=== PATIENT | female | born 1965 | race Caucasian/White ===

== ENCOUNTER 2019-05-13 14:47 | Emergency (ER) | payer BC ==
--- OUTSIDE RECORDS SUMMARY | 2019-05-13 15:04 | XMS REPORT | Continuity of Care Document ---
:1965 External Reference #:[id number] Author Name Traci Cruz, MS, OPHTHALMIC SURGICAL ASSISTANT-C, CNM (transmitted by agent of provider Sammi Alejandra) Address [address] [place] [address] Care Team Providers Name Role Phone Sammi Alejandra MD - Internal Medicine Care Team Information Individual Pension Consultant Problems Active Problems Provider Date Benign tumor of breast Cachorro Hodge MD Onset: 03/27/2013 Heartburn Benedict Mlilard MD Onset: 12/02/2016 Gastro-esophageal reflux disease with Benedict Millard MD Onset: 02/15/2017 esophagitis Gastroduodenitis Benedict Millard MD Onset: 02/15/2017 Benign neoplasm of stomach Benedict Millard MD Onset: 02/15/2017 Screening for malignant neoplasm of colon Benedict Millard MD Onset: 12/27/2017 Hyperlipidemia Sammi Alejandra MD Onset: 07/31/2018 Gastro-esophageal reflux disease with Sammi Alejandra MD Onset: 07/31/2018 esophagitis Migraine without aura, not refractory Sammi Alejandra MD Onset: 07/31/2018 Trigeminal neuralgia Sammi Alejandra MD Onset: 07/31/2018 Social History Type Date Description Comments Sex Unknown Tobacco Use Start: Unknown current cigarette smoker ETOH Use Rarely consumes alcohol Tobacco Use Start: Unknown Patient is a current smoker, smokes every day Recreational Drug Use Denies Drug Use Tobacco Use Start: Unknown Light tobacco smoker (10 or fewer cigarettes/day) Smoking Status Reviewed: 03/29/19 Light tobacco smoker (10 or fewer cigarettes/day) Allergies, Adverse Reactions, Alerts Description No Known Drug Allergies Medications Active Medications SIG Qnty Indications Ordering Provider Date Wrist Brace/Suede use on left hand 1units E78.5 Ny, Sammi, MD 2018 Finish/Left/Medium during the night Misc [id number] Ethyl Take 2 in am 60caps E78.5 Sammi Alejandra MD 12/26/2018 Esters 1gm Capsules Nystop apply under 60gm B37.9 Sammi Alejandra MD 12/26/2018 [id number]/GM breasts twice a Powder day Vitamin D take one capsule 12caps Sammi Alejandra MD 11/06/2018 (Ergocalciferol) once a week [id number] Capsules Singulair 1 by mouth every 30tabs Sammi Alejandra MD 10mg Tablets day as needed Atorvastatin Calcium 1 by mouth daily 30tabs Sammi Alejandra MD 10mg Tablets Famotidine 1 by mouth every 30tabs Sammi Alejandra MD 20mg Tablets day History Medications Cephalexin 1 by mouth 30tabs L03.032 Sammi Alejandra, 12/26/2018 - 500mg Tablets three times a MD 03/29/2019 day Ergocalciferol take one a week 16caps E55.9 Sammi Alejandra, 12/26/2018 - 56689Isre 03/29/2019 Capsules Benzonatate take one 30caps R05 Sammi Alejandra, 10/23/2018 - 200mg capsule every 8 MD 12/26/2018 Capsules hours as needed Mucus Relief ER Take one every 60tabs R05 Sammi Alejandra, 10/23/2018 - 600mg 12 hours if 12/26/2018 Tablets ER 12HR needed Immunizations CPT Code Status Date Vaccine Lot # [id number] Given 11/11/2016 Pneumovax Injection 33799 Given 11/11/2016 Tdap injection 38848 Given 06/13/2013 flu vaccination Vital Signs Date Vital Result Comment 03/29/2019 1:54pm BP Systolic Sitting Left Arm 110 mmHg BP Diastolic Sitting Left Arm 72 mmHg Body Temperature 97.8 F Heart Rate 85 /min Respiratory Rate 18 /min Height 65 inches 5'5" Weight 170.00 lb BMI (Body Mass Index) 28.3 kg/m2 BSA (Body Surface Area) 1.85 m2 [place] body weight in kilograms 57 kg O2 % BldC Oximetry 97 % ra 01/08/2019 1:08pm BP Systolic Sitting Right Arm 114 mmHg BP Diastolic Sitting Right Arm 80 mmHg Body Temperature 9.2 F Heart Rate 84 /min Respiratory Rate 18 /min Height 65 inches 5'5" Weight 168.00 lb BMI (Body Mass Index) 28.0 kg/m2 BSA (Body Surface Area) 1.84 m2 [place] body weight in kilograms 57 kg O2 % BldC Oximetry 98 % Ra Results Test Date Facility Test Result H/L Range Note LDL Cholesterol 03/28/2019 [facility] Cholesterol 264 mg/dL High <200 1, [address] [place], [place] [id number] [phone] Triglycerides 319 mg/dL High <150 3 HDL Cholesterol 37 mg/dL Low >40 4 LDL-Cholesterol 163 mg/dL < 100 5 Laboratory 03/28/2019 [facility] Vitamin 28.3 Low 30.0-100.0 6 test finding [address] D,25-Hydroxy ng/[place] [address] [phone] CBC 03/28/2019 [facility] White Blood 7.0 K/uL Normal 3.1-10.7 W/Automated [address] [place] [address] [phone] Red Blood Count 4.45 M/uL Normal 3.90-5.40 Hemoglobin 14.4 gm/dL Normal 11.6-15.8 Hematocrit 42.0 % Normal 36.0-46.1 Mean Cell Volume 94.4 fl Normal 80.9-99.0 Mean Corpuscular HGB 32.4 pg Normal 25.9-32.7 Mean Corpuscular HGB Conc 34.3 g/dL Normal 30.8-34.3 Platelet Count 192 K/uL Normal 155-360 Red Cell Distri Width SD 46.7 fl Normal 36-47 Red Cell Distri Width %CV 13.5 % Normal 11.7-14.4 Mean Platelet Volume 10.7 fl Normal 8.9-12.4 Neut% 34.9 % Low 40.4-72.8 Lymph % 54.9 % High 20.0-42.0 [place] % 6.5 % Normal 4.3-13.2 Eo% 2.7 % Normal 0.0-6.6 Bas% 0.6 % Normal 0.0-1.1 Immature Grans 0.4 % Normal 0.0-5.0 NRBC % 0.0 /100WBC < 10/ 100 WBC Neut# 2.43 K/uL Normal 1.8-7.0 Lymph # 3.83 K/uL Normal 1.0-4.0 [place] # 0.45 K/uL Normal 0.3-0.9 Eos # 0.19 K/uL Normal 0.0-0.5 Baso # 0.04 K/uL Normal 0.0-0.1 Immature Grans Absolute 0.03 K/uL NRBC # 0.00 K/uL Comprehensive 03/28/2019 [facility] Glucose 96 mg/dL Normal 74-106 Metabolic Panel [address] [place] [address] [phone] BUN 14 mg/dL Normal 7-18 Creatinine 0.8 mg/dL Normal 0.6-1.3 Glom Filtration Rate, Estimate >60 mL/min >60 If >60 mL/min >60 7 BUN/Creat 17.5 ratio Sodium 139 mmol/L Normal 136-145 Potassium 4.2 mmol/L Normal 3.5-5.1 Chloride 107 mmol/L Normal 98-107 Carbon Dioxide 24 mmol/L Normal 21-32 Anion Gap 8 mEq/L Normal 8-16 Calcium 9.2 mg/dL Normal 8.5-10.1 Total Protein 7.1 g/dL Normal 6.4-8.2 Albumin 3.5 g/dL Normal 3.4-5.0 Globulin 3.6 g/dL Normal 1.9-4.3 Alb/Glob 1.0 ratio Bilirubin,Total 0.3 mg/dL Normal 0.2-1.0 Sgot/Ast 13 U/L Low 15-37 8 SGPT/Alt 27 U/L Normal 12-78 Alkaline Phosphatase 122 U/L High 45-117 HPV High Risk - 12/26/2018 [facility] HPV High Results on Alt Ref Lab [address] [facility] [place] [address] [phone] Urine Dipstick 12/26/2018 [facility] Ua Color yellow Yellow Ua Clarity clear Clear Ua Leuko negative Negative Ua Nitrite negative Negative Ua Urobilinogen negative Low 0.2 - 1.0 E.U./dL Ua Protein negative Negative Ua PH 5.0 Low 6.5-7.5 Ua Blood negative Negative Ua Specific [place] 1.025 1.010-1.030 Ua Ketones negative Negative Ua Bilirubin negative Negative Ua Glucose negative Negative Laboratory test 10/23/2018 [facility] Vitamin 25.5 Low 30.0-100.0 11, finding [address] D,25-Hydroxy ng/mL 12 [place], [place] [id number] [phone] Glycohemoglobin 10/23/2018 [facility] Glycohemoglobin 5.6 % Normal 4.2-6.[address] (A1c) [place], [place] [id number] [phone] eAG 114 mg/dL CBC W/Automated 10/23/2018 [facility] White Blood 7.1 K/uL Normal 3.1-10.[address] Count [place], [place] [address] [phone] Red Blood Count 4.51 M/uL Normal 3.90-5.40 Hemoglobin 14.5 gm/dL Normal 11.6-15.8 Hematocrit 43.2 % Normal 36.0-46.1 Mean Cell Volume 95.8 fl Normal 80.9-99.0 Mean Corpuscular HGB 32.2 pg Normal 25.9-32.7 Mean Corpuscular HGB Conc 33.6 g/dL Normal 30.8-34.3 Platelet Count 189 K/uL Normal 155-360 Red Cell Distri Width SD 48.0 fl High 36-47 Red Cell Distri Width %CV 14.0 % Normal 11.7-14.4 Mean Platelet Volume 11.6 fL Normal 8.9-12.4 Neut% 43.6 % Normal 40.4-72.8 Lymph % 46.4 % High 20.0-42.0 [place] % 7.3 % Normal 4.3-13.2 Eo% 2.4 % Normal 0.0-6.6 Bas% 0.3 % Normal 0.0-1.1 Neut# 3.10 K/uL Normal 1.8-7.0 Lymph # 3.30 K/uL Normal 1.0-4.0 [place] # 0.52 K/uL Normal 0.3-0.9 Eos # 0.17 K/uL Normal 0.0-0.5 Baso # 0.02 K/uL Normal 0.0-0.1 Laboratory test 10/23/2018 [facility] Thyroid 2.11 Normal 0.30-4.20 finding [address] Stim uIU/[place] [address] Hormone [phone] Free T4 1.01 ng/dL Normal 0.76-1.46 Magnesium 2.4 mg/dL Normal 1.8-2.4 Iron-Tibc-%Sat 10/23/2018 [facility] Serum Iron 133 g/dL Normal 50-170 [address] [place] [address] [phone] Total Iron Binding Capacity 347 g/dL Normal 250-450 Transferrin %Saturation 38 % Normal 12-57 Laboratory test 10/23/2018 [facility] Ferritin 145 ng/mL Normal 8-252 finding [address] [place] [address] [phone] Vitamin B12 731 pg/mL Normal 193-986 LDL Cholesterol 10/23/2018 [facility] Cholesterol 272 mg/dL High <200 14 Profile [address] [place] [address] [phone] Triglycerides 373 mg/dL High <150 15 HDL Cholesterol 42 mg/dL >40 16 LDL-Cholesterol 155 mg/dL < 100 17 Comprehensive 10/23/2018 [facility] Glucose 89 mg/dL Normal 74-106 Metabolic Panel [address] [place] [address] [phone] BUN 15 mg/dL Normal 7-18 Creatinine 0.7 mg/dL Normal 0.6-1.3 Glom Filtration Rate, Estimate >60 mL/min >60 If >60 mL/min >60 18 BUN/Creat 21.4 ratio Sodium 142 mmol/L Normal 136-145 Potassium 5.1 mmol/L Normal 3.5-5.1 Chloride 108 mmol/L High 98-107 Carbon Dioxide 30 mmol/L Normal 21-32 Anion Gap 4 mEq/L Low 8-16 Calcium 9.4 mg/dL Normal 8.5-10.1 Total Protein 7.0 g/dL Normal 6.4-8.2 Albumin 3.8 g/dL Normal 3.4-5.0 Globulin 3.2 g/dL Normal 1.9-4.3 Alb/Glob 1.2 ratio Bilirubin,Total 0.4 mg/dL Normal 0.2-1.0 Sgot/Ast 11 U/L Low 15-37 19 SGPT/Alt 26 U/L Normal 12-78 Alkaline Phosphatase 115 U/L Normal 45-117 1 E78.5 E55.9 2 Reference Guidelines*: Desirable: ........... < 200 mg/dL Borderline High: ..... 200-239 mg/dL High: ................ >= 240 mg/dL * The National Cholesterol Education Program (NCEP) 3 Reference Guidelines*: Normal: ............. < 150 mg/dL Borderline High: .... 150-199 mg/dL High: ............... 200-499 mg/dL Very High: .......... > 500 mg/dL * Source: National Cholesterol Education Program (NCEP) 4 Reference Guidelines*: Low HDL: ..... < 40 mg/dL Normal: ..... 40-60 mg/dL Desirable: ... > 60 mg/dL *The National Cholesterol Education Program(NCEP) 5 Reference Guidelines*: Optimal:........... <100 mg/dL Near Optimal....... 100-129 mg/dL Borderline High.... 130-159 mg/dL High............... 160-189 mg/dL Very High.......... >=190 mg/dL * Source: National Cholesterol Education Program (NCEP) 6 Vitamin D deficiency has been defined by the [place] of [employer] and an Endocrine Society practice guideline as a level of serum 25-OH vitamin D less than 20 ng/mL (1,2). The Endocrine Society went on to further define vitamin D insufficiency as a level between 21 and 29 ng/mL (2). 1. IOM ([place] of Medicine). 2010. Dietary reference intakes for calcium and D. [place]: The National Academies Press. 2. Frank MF, Briana NC, Florecita HERNANDEZ, et al. Evaluation, treatment, and prevention of vitamin D deficiency: an Endocrine Society clinical practice guideline. JCEM. 2010; 96(7):1911-30. Performed at: RN - [facility] [address] [id number] Methodologist: Edna Gallagher MD, Phone: [phone] Note: Persistent reduction for 3 months or more in an eGFR <60 mL/min/1.73 m2 defines CKD. Patients with eGFR values >/=60 mL/min/1.73 m2 may also have CKD if evidence of persistent proteinuria is present. The original MDRD equation for estimated GFR is not valid for patients less than 18 years of age. Additional information may be found at www.kdoqi.org. 8 Values below the stated reference ranges of AST and ALT can be seen in normal populations. Clinical correlation is suggested. 9 Z12.4 10 Hard copy of report to be sent by mail Report may be viewed in Clinical Review, or in PCI under Medical Record Forms 11 E78.5 G43.009 E55.9 Z86.32 R53.82 G25.81 12 Vitamin D deficiency has been defined by the [place] of [employer] and an Endocrine Society practice guideline as a level of serum 25-OH vitamin D less than 20 ng/mL (1,2). The Endocrine Society went on to further define vitamin D insufficiency as a level between 21 and 29 ng/mL (2). 1. IOM ([place] of Medicine). 2010. Dietary reference intakes for calcium and D. [place]: The National Academies Press. 2. Frank MF, Briana [place], Florecita HERNANDEZ, et al. Evaluation, treatment, and prevention of vitamin D deficiency: an Endocrine Society clinical practice guideline. JCEM. 2010; 96(7):1911-30. Performed at: RN - [facility] [address] [id number] Methodologist: Edna Gallagher MD, Phone: [phone] 13 Elevated levels of HbA1c suggest the need for more aggressive treatment of glycemia. The [place] Diabetes Association recommends that a primary goal of therapy should be a HbA1c of <7% and that physicians should re-evaluate the treatment regimen in patients with HbA1c values consistently >8%. 14 Reference Guidelines*: Desirable: ........... < 200 mg/dL Borderline High: ..... 200-239 mg/dL High: ................ >= 240 mg/dL * The National Cholesterol Education Program (NCEP) 15 Reference Guidelines*: Normal: ............. < 150 mg/dL Borderline High: .... 150-199 mg/dL High: ............... 200-499 mg/dL Very High: .......... > 500 mg/dL * Source: National Cholesterol Education Program (NCEP) 16 Reference Guidelines*: Low HDL: ..... < 40 mg/dL Normal: ..... 40-60 mg/dL Desirable: ... > 60 mg/dL *The National Cholesterol Education Program(NCEP) 17 Reference Guidelines*: Optimal:........... <100 mg/dL Near Optimal....... 100-129 mg/dL Borderline High.... 130-159 mg/dL High............... 160-189 mg/dL Very High.......... >=190 mg/dL * Source: National Cholesterol Education Program (NCEP) 18 Note: Persistent reduction for 3 months or more in an eGFR <60 mL/min/1.73 m2 defines CKD. Patients with eGFR values >/=60 mL/min/1.73 m2 may also have CKD if evidence of persistent proteinuria is present. The original MDRD equation for estimated GFR is not valid for patients less than 18 years of age. Additional information may be found at www.kdoqi.org. 19 Values below the stated reference ranges of AST and ALT can be seen in normal populations. Clinical correlation is suggested. Procedures Date Code Description Status 11/20/2018 [id number] Mammogram Completed 10/23/2018 55557 Remove Impact Cerumen Irrigati Completed 04/19/2018 [id number] Colonoscopy Completed 11/17/2017 [id number] Mammogram Completed 03/22/2013 [id number] Mammogram Completed 03/14/2013 [id number] Mammogram Completed 03/12/2013 [id number] Mammogram Completed Medical Devices Description No Information Available Encounters Type Date Location Provider Dx Diagnosis Office Visit 03/29/2019 [facility] Nancy, E78.5 Hyperlipidemia, 2:00p Office Traci, , unspecified OPHTHALMIC SURGICAL ASSISTANT-C, CNM E55.9 Vitamin D deficiency, unspecified K21.0 Gastro-esophageal reflux disease with esophagitis M25.562 Pain in left knee R20.0 Anesthesia of skin F17.210 Nicotine dependence, cigarettes, uncomplicated Z71.6 Tobacco abuse counseling Office Visit 01/08/2019 1:00p [facility], L03.032 Cellulitis of Office Traci, MS, left toe OPHTHALMIC SURGICAL ASSISTANT-C, CNM Office Visit 12/26/2018 1:30p [facility], Z01.419 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 MS Traci, exam (general) OPHTHALMIC SURGICAL ASSISTANT-C, CNM (routine) w/o abn findings R92.2 Inconclusive mammogram E78.5 Hyperlipidemia, unspecified F17.210 Nicotine dependence, cigarettes, uncomplicated G25.81 Restless legs syndrome E55.9 Vitamin D deficiency, unspecified L03.032 Cellulitis of left toe R23.9 Unspecified skin changes B37.9 Candidiasis, unspecified Office Visit 10/23/2018 8:30a Primary Care Marii Cruzline, R07.9 Chest pain, Office MS, OPHTHALMIC SURGICAL ASSISTANT-C, CNM unspecified E78.5 Hyperlipidemia, unspecified K21.0 Gastro-esophageal reflux disease with esophagitis G43.009 Migraine w/o aura, not intractable, w/o status migrainosus G25.81 Restless legs syndrome R60.0 Localized edema R05 Cough H61.21 Impacted cerumen, right ear F17.210 Nicotine dependence, cigarettes, uncomplicated Z12.31 Encntr screen mammogram for malignant neoplasm of breast Assessments Date Code Description Provider 03/29/2019 E78.5 Hyperlipidemia, unspecified Traci Cruz, MS, OPHTHALMIC SURGICAL ASSISTANT-C, CNM 03/29/2019 E55.9 Vitamin D deficiency, unspecified Nancy Traci, MS, OPHTHALMIC SURGICAL ASSISTANT-C, CNM 03/29/2019 K21.0 Gastro-esophageal reflux disease NancyTraci, MS, OPHTHALMIC SURGICAL ASSISTANT -C, with esophagitis CNM 03/29/2019 M25.562 Pain in left knee Traci Cruz, , OPHTHALMIC SURGICAL ASSISTANT-C, CN 03/29/2019 R20.0 Anesthesia of skin Traci Cruz, MS, OPHTHALMIC SURGICAL ASSISTANT-C, CN 03/29/2019 F17.210 Nicotine dependence, cigarettes, Traci Cruz, MS, OPHTHALMIC SURGICAL ASSISTANT-C, uncomplicated CN 03/29/2019 Z71.6 Tobacco abuse counseling Traci Cruz, MS, OPHTHALMIC SURGICAL ASSISTANT-C, [facility] 01/08/2019 L03.032 Cellulitis of left toe Traci Cruz, MS, OPHTHALMIC SURGICAL ASSISTANT-C, CN 12/26/2018 Z01.419 Encounter for gynecological Traci Cruz, MS, OPHTHALMIC SURGICAL ASSISTANT-C, examination (general) (routine) [facility] 12/26/2018 R92.2 Inconclusive mammogram Traci Cruz, MS, OPHTHALMIC SURGICAL ASSISTANT-C, [facility] 12/26/2018 E78.5 Hyperlipidemia, unspecified Marii Cruzline, MS, OPHTHALMIC SURGICAL ASSISTANT-C, [facility] 12/26/2018 F17.210 Nicotine dependence, cigarettes, Traci Cruz, MS, OPHTHALMIC SURGICAL ASSISTANT-C, uncomplicated [facility] 12/26/2018 G25.81 Restless legs syndrome Traci Cruz, MS, OPHTHALMIC SURGICAL ASSISTANT-C, [facility] 12/26/2018 E55.9 Vitamin D deficiency, unspecified Traci Cruz, MS, OPHTHALMIC SURGICAL ASSISTANT-C, [facility] 12/26/2018 L03.032 Cellulitis of left toe Traci Cruz, MS, OPHTHALMIC SURGICAL ASSISTANT-C, [facility] 12/26/2018 R23.9 Unspecified skin changes Traci Cruz, MS, OPHTHALMIC SURGICAL ASSISTANT-C, [facility] 12/26/2018 B37.9 Candidiasis, unspecified Gagen, Traci, MS, OPHTHALMIC SURGICAL ASSISTANT-C, [facility] 12/21/2018 Z01.419 Encounter for gynecological Traci Cruz, MS, OPHTHALMIC SURGICAL ASSISTANT-C, examination (general) (routine) [facility] without abnormal findings 12/21/2018 R92.2 Inconclusive mammogram Traci Cruz, MS, OPHTHALMIC SURGICAL ASSISTANT-C, [facility] 12/21/2018 E78.5 Hyperlipidemia, unspecified Gagen, Traci, MS, OPHTHALMIC SURGICAL ASSISTANT-C, [facility] 12/21/2018 F17.210 Nicotine dependence, cigarettes, Traci Cruz, MS, OPHTHALMIC SURGICAL ASSISTANT-C, uncomplicated [facility] 12/21/2018 G25.81 Restless legs syndrome Traci Cruz, , OPHTHALMIC SURGICAL ASSISTANT-C, [facility] 12/21/2018 E55.9 Vitamin D deficiency, unspecified Traci Cruz, MS, OPHTHALMIC SURGICAL ASSISTANT-C, [facility] 10/23/2018 R07.9 Chest pain, unspecified Traci Cruz, MS, OPHTHALMIC SURGICAL ASSISTANT-C, [facility] 10/23/2018 E78.5 Hyperlipidemia, unspecified Traci Cruz, MS, OPHTHALMIC SURGICAL ASSISTANT-C, [facility] 10/23/2018 K21.0 Gastro-esophageal reflux disease Traci Cruz, MS, OPHTHALMIC SURGICAL ASSISTANT -C, with esophagitis [facility] 10/23/2018 G43.009 Migraine without aura, not Traci Cruz, MS, OPHTHALMIC SURGICAL ASSISTANT-C, intractable, without status migra [facility] 10/23/2018 G25.81 Restless legs syndrome Traci Cruz, MS, OPHTHALMIC SURGICAL ASSISTANT-C, [facility] 10/23/2018 R60.0 Localized edema Traci Cruz, MS, OPHTHALMIC SURGICAL ASSISTANT-C, [facility] 10/23/2018 R05 Cough Traci Cruz, MS, OPHTHALMIC SURGICAL ASSISTANT-C, [facility] 10/23/2018 H61.21 Impacted cerumen, right ear Traci Cruz, , OPHTHALMIC SURGICAL ASSISTANT-C, [facility] 10/23/2018 F17.210 Nicotine dependence, cigarettes, Traci Cruz, , OPHTHALMIC SURGICAL ASSISTANT-C, uncomplicated [facility] 10/23/2018 Z12.31 Encounter for screening mammogram Traci Cruz MS, OPHTHALMIC SURGICAL ASSISTANT-C, for malignant neoplasm of [facility] Plan of Treatment Future Appointment(s):04/17/2019 9:20 am - Sammi Alejandra MD at [facility] [id number]/29/2019 - Traci Cruz MS, OPHTHALMIC SURGICAL ASSISTANT-C, CNME78.5 Hyperlipidemia, unspecifiedNew Medication:Wrist Brace/Suede Finish/Left/Medium - use on left hand during the nightComments:Total Cholesterol: 272 > 264Triglycerides: 373 > 319High Density Lipids: 42 > 37Low DensityLipids: 155 > 163--Follow a heart healthy diet that emphasizes fruits, vegetables, whole grains, poultry, fish, and nuts. --[place] [employer] Association recommends limiting saturated fats to 5-6 % of your daily calories and minimizing the amount of saturated fats and trans fatty acids that you eat. Saturated fats are typically solids at room temperature. Trans fatty acids are found in fried foods, baked goods.--A diet high in fiber can help lower cholesterol. --Decrease sugary food and beverages-- Increase physical activity to 30 minutes on most days, as tolerated--Quit smoking. Non smokers should avoid second hand smoke. --Lose weight -- Patient advised to start taking Atorvastatin Calcium 10 mg 1 po daily -- Last OV, Patient did get omega 3; however, did not start taking it. She has not taken statin in the last month. We will reevaluate labs on RTO in 3 months after Patient has been taking atqxhsyyjaiX54.9 Vitamin D deficiency, unspecifiedComments:-- Vitamin D level: 25.5-- Patient was not taking high dose vitamin D, as ordered. She states she will start taking it.When complete, take Vitamin D3 gel capsules 2000 IU QDAYK21.0 Gastro-esophageal reflux disease with esophagitisComments:-- Patient stopped taking Pepcid, due to her move and symptoms were worse. -- Patient wants to trial Pepcid again; however, If symptoms persist to C/B and will do a course of PPI. Will order further testing if bvbaruO68.562 Pain in left kneeNew Xrays:Knee Complete 4 Or More Views, Scheduled: 04/01/19Comments:-- ice 20 min on 20 min off--NSAID as needed--X-ray --IccezvbY43.0 Anesthesia of skinComments:--Labs--Glucose, calcium, TSH normal-- Wrist brace at night --Monitor symptoms. Patient is unsure if her right hand is also falling pfgywhT41.210 Nicotine dependence, cigarettes, uncomplicatedComments:-- Patient is vaping and now smoking. Advised to quit.--- I highly encourage you to consider smoking cessation. Smoking is linked to a variety of health conditions such as hypertension, lung disease, as well as inflammatory disease. It is also linked to multiple cancers, not just lung cancer - it is also implicated in breast, colon and skin cancer. --> 5 minutes were spent counseling Patient on smoking dlqdkmspvX22.6 Tobacco abuse counselingAllFollow up:RTO 2 weeks left knee xray Functional Status Description No Information Available Mental Status Description No Information Available Referrals Description No Information Available
[2019-05-13 15:17] VITALS: BP 124/78
--- NOTE | 2019-05-13 15:39 | UC ---
Respiratory Complaint HPI - HPI Summary HPI Summary: 53-year-old female smoker who has been ill with head and chest congestion over the past week. She has productive cough of yellow sputum. No history of asthma. - History of Current Complaint Chief Complaint: UCRespiratory Stated Complaint: COUGH,CHEST CONGESTION Time Seen by Provider: 05/13/19 15:33 Hx Obtained From: Patient Hx Last Menstrual Period: awhile ?: No Onset/Duration: Gradual Onset Timing: Intermittent Episodes Severity Initially: Mild Severity Currently: Mild Pain Intensity: 0 Character: Cough: Productive - Productive cough of yellow sputum. Aggravating Factors: Exertion Alleviating Factors: Nothing Associated Signs And Symptoms: Positive: Wheezing, URI - Allergies/Home Medications Allergies/Adverse Reactions: Allergies Allergy/AdvReac Type Severity Reaction Status Date / Time No Known Allergies Allergy Verified 05/13/19 15:12 Home Medications: Home Medications Famotidine TAB* [Pepcid 20 MG TAB*] 1 tab QPM 05/13/19 [History Confirmed ] PMH/Surg Hx/FS Hx/Imm Hx Previously Healthy: Yes Endocrine History: Dyslipidemia - Surgical History Surgical History: Yes Surgery Procedure, Year, and Place: Benign Breast Biopsies, 2017 2012 - Family History Known Family History: Positive: None Negative: Diabetes - Social History Alcohol Use: Rare Substance Use Type: None Smoking Status (MU): Heavy Every Day Tobacco Smoker Type: Cigarettes Amount Used/How Often: 3/4 - 1 ppd Length of Time of Smoking/Using Tobacco: Since Age 20 Have You Smoked in the Last Year: Yes - Immunization History Most Recent Influenza Vaccination: no Review of Systems All Other Systems Reviewed And Are Negative: Yes Respiratory: Positive: Shortness Of Breath - Mild shortness of breath with coughing., Cough - Productive cough of yellow sputum. Is Patient Immunocompromised?: No Physical Exam Triage Information Reviewed: Yes Appearance: Well-Appearing, No Pain Distress, Well-Nourished Vital Signs: Initial Vital Signs Temp 97.8 F 05/13/19 15:14 Pulse 85 05/13/19 15:14 Resp 16 05/13/19 15:14 BP 124/78 05/13/19 15:14 Pulse Ox 98 05/13/19 15:14 Vital Signs Reviewed: Yes Eyes: Positive: Conjunctiva Clear ENT: Positive: Pharynx normal, TMs normal, Uvula midline Neck: Positive: Supple, Nontender, No Lymphadenopathy Respiratory: Positive: No respiratory distress, No accessory muscle use, Rhonchi , Wheezing - Scattered rhonchi and wheezing throughout but with good air movement. Cardiovascular: Positive: RRR, No Murmur, Pulses Normal, Brisk Capillary Refill Musculoskeletal Exam: Normal Neurological Exam: Normal Psychological Exam: Normal Skin Exam: Normal Respiratory Course/Dx - Course Course Of Treatment: DuoNeb treatment: Chest x-ray:FINDINGS: CARDIOMEDIASTINAL SILHOUETTE: The cardiomediastinal silhouette is normal. CHARITY: The charity are normal. PLEURA: The costophrenic angles are sharp. No pleural abnormalities are noted. LUNG PARENCHYMA: The lungs are clear. ABDOMEN: The upper abdomen is clear. There is no subphrenic gas. BONES AND SOFT TISSUES: No bone or soft tissue abnormalities are noted. OTHER: None. IMPRESSION: NO ACTIVE CARDIOPULMONARY DISEASE. - Differential Dx/Diagnosis Provider Diagnosis: Bronchitis Discharge ED - Sign-Out/Discharge Documenting (check all that apply): Patient Departure All imaging exams completed and their final reports reviewed: Yes - Discharge Plan Condition: Fair Disposition: HOME Prescriptions: Azithromyxin THEO (NF) [Z-Theo (Zithromax) 250 mg tabs #6] 2 tab PO .TODAY, THEN 1 DAILY #6 tab predniSONE TAB* [Deltasone 10 MG TAB*] 10 mg PO DAILY 12 Days #30 tab Patient Education Materials: Acute Bronchitis (ED) Referrals: Venessa Barth MD [Primary Care Provider] - Additional Instructions: You will continue to have chronic lung problems if you continue smoking. Increase fluids. Take the prednisone with food. Follow-up with your primary care doctor's office if no improvement in 4 or 5 days. Go to the emergency room if you have any worsening symptoms. - Billing Disposition and Condition Condition: FAIR Disposition: Home
[2019-05-13] MEDS ORDERED: Albuterol/Ipratropium NEB.SOL* Albuterol 2.5 MG/Ipratropium 0.5 MG 3 ML INH ONE (15:42)
== END 2019-05-13 16:52 | disposition home or self-care (01) ==
LOC: UCCORT 14:47
DX: J40 Bronchitis, not specified as acute or chronic (principal); F17.210 Nicotine dependence, cigarettes, uncomplicated
CPT/HCPCS: 71046; 99212; A9270-GY; G0463

== ENCOUNTER 2019-07-08 09:40 | Emergency (ER) | payer BC ==
--- OUTSIDE RECORDS SUMMARY | 2019-07-08 09:55 | XMS REPORT | Continuity of Care Document ---
:1965 External Reference #:[id number] Author Name Emily Dalton MD, PHD Address [address], [address] [place] [address] Problems Active Problems Provider Date Benign tumor of breast Cachorro Hodge MD Onset: 03/27/2013 Heartburn Benedict Millard MD Onset: 12/02/2016 Gastro-esophageal reflux disease with [...] Trigeminal neuralgia Sammi Alejandra MD Onset: 07/31/2018 Cough Emily Dalton MD, PHD Onset: 06/14/2019 Social History Type Date Description Comments Sex Unknown Tobacco Use Start: Unknown current cigarette smoker ETOH Use Rarely consumes alcohol Tobacco Use Start: Unknown Patient is a current smoker, smokes every day Recreational Drug Use Denies Drug Use Tobacco Use Start: Unknown Heavy tobacco smoker (more than 10 cigarettes/day) Smoking Status Reviewed: 06/14/19 Heavy tobacco smoker (more than 10 cigarettes/day) Allergies, Adverse Reactions, Alerts Description No Known Drug Allergies Medications Active Medications SIG Qnty Indications Ordering Date Provider Symbicort 1 puff daily 6.900gm R05 Tea Barth, 06/14/2019 80-4.5mcg/Act every day 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 Aerosol Benzonatate 1 tab as needed 30caps R05 Tea Barth, 06/14/2019 100mg every 8 hours for 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 Capsules coughing Wrist Brace/Suede use on left hand 1units Sammi Alejandra, 03/29/2019 Finish/Left/Medium during the night MD Schmidt [id number] Ethyl Take 2 in am 60caps E78.5 Sammi Alejandra, 12/26/2018 Esters 1gm Capsules Vitamin D take one capsule 12caps Sammi Alejandra, 11/06/2018 (Ergocalciferol) once a week 25442Uwtt Capsules Atorvastatin Calcium 1 by mouth daily 30tabs Sammi Alejandra, MD 10mg Tablets Famotidine 1 by mouth every 30tabs Sammi Alejandra, 20mg Tablets day MD History Medications Cephalexin 1 by mouth 30tabs L03.032 Sammi Alejandra, 12/26/2018 - 500mg Tablets three times a MD 03/29/2019 day Ergocalciferol take one a week 16caps E55.9 Sammi Alejandra, 12/26/2018 - [id number] 03/29/2019 Capsules Nystop apply under 60gm B37.9 Sammi Alejandra, 12/26/2018 - [id number]/GM breasts twice 06/14/2019 Powder a day Immunizations CPT Code Status Date Vaccine Lot # [id number] Given 11/11/2016 Pneumovax Injection [id number] Given 11/11/2016 Tdap injection [id number] Given 06/13/2013 flu vaccination Vital Signs Date Vital Result Comment 06/14/2019 2:20pm BP Systolic 115 mmHg BP Diastolic 78 mmHg Body Temperature 97.4 F Heart Rate 96 /min Respiratory Rate 16 /min Height 65 inches 5'5" Weight 174.00 lb BMI (Body Mass Index) 29.0 kg/m2 BSA (Body Surface Area) 1.86 m2 [place] body weight in kilograms 57 kg O2 % BldC Oximetry 98 % 03/29/2019 1:54pm BP Systolic Sitting Left Arm 110 mmHg BP Diastolic Sitting Left Arm 72 mmHg Body Temperature 97.8 F Heart Rate 85 /min Respiratory Rate 18 /min Height 65 inches 5'5" Weight 170.00 lb BMI (Body Mass Index) 28.3 kg/m2 BSA (Body Surface Area) 1.85 m2 [place] body weight in kilograms 57 kg O2 % BldC Oximetry 97 % ra Results Test Date Facility Test Result H/L Range Note LDL Cholesterol 03/28/2019 [facility] Cholesterol 264 mg/dL High <200 1, [address] [place], [place] [id number] [phone] Triglycerides 319 mg/dL High <150 3 HDL Cholesterol 37 mg/dL Low >40 4 LDL-Cholesterol 163 mg/dL < 100 5 Laboratory 03/28/2019 [facility] Vitamin 28.3 Low 30.0-100.0 6 test finding [address] D,25-Hydroxy ng/[place] [address] [phone] CBC 03/28/2019 [facility] White Blood 7.0 K/uL Normal 3.1-10.7 W/Automated [address] [place] [address] [phone] Red Blood Count 4.45 M/uL Normal 3.90-5.40 [...] 40.4-72.8 Lymph % 54.9 % High 20.0-42.0 Grant % 6.5 % Normal 4.3-13.2 Eo% 2.7 % Normal 0.0-6.6 Bas% 0.6 % Normal 0.0-1.1 Immature Grans 0.4 % Normal 0.0-5.0 NRBC % 0.0 /100WBC < 10/ 100 WBC Neut# 2.43 K/uL Normal 1.8-7.0 Lymph # 3.83 K/uL Normal 1.0-4.0 Grant # 0.45 K/uL Normal 0.3-0.9 Eos # 0.19 K/uL Normal 0.0-0.5 Baso # 0.04 K/uL Normal 0.0-0.1 Immature Grans Absolute 0.03 K/uL NRBC # 0.00 K/uL Comprehensive 03/28/2019 [facility] Glucose 96 mg/dL Normal 74-106 Metabolic Panel [address] [place] [address] [phone] BUN 14 mg/dL Normal 7-18 Creatinine 0.8 [...] High 45-117 HPV High Risk - 12/26/2018 [facility] HPV High Results on Alt Ref Lab [address] [place] [address] [phone] Urine Dipstick 12/26/2018 [facility] Ua Color yellow Yellow Ua Clarity clear Clear Ua Leuko negative Negative Ua Nitrite negative Negative Ua Urobilinogen negative Low 0.2 - 1.0 E.U./dL Ua Protein negative Negative Ua PH 5.0 Low 6.5-7.5 Ua Blood negative Negative Ua Specific Candia 1.025 1.010-1.030 Ua Ketones negative Negative Ua Bilirubin negative Negative Ua Glucose negative Negative 1 E78.5 E55.9 2 Reference Guidelines*: Desirable: [...] D deficiency has been defined by the [place] of Medicine and an Endocrine Society practice guideline as a level of serum 25-OH vitamin D less than 20 ng/mL (1,2). The Endocrine Society went on to further define vitamin D insufficiency as a level between 21 and 29 ng/mL (2). 1. IOM ([place] of Medicine). 2010. Dietary reference intakes for calcium and D. [place]: The National Academies Press. 2. Frank MF, Briana [place], Florecita HERNANDEZ, et al. Evaluation, treatment, and prevention of vitamin D deficiency: an Endocrine Society clinical practice guideline. JCEM. 2010; 96(7):1911-30. Performed at: - [facility] [id number] [place] [facility] Line: Edna Gallagher MD, Phone: [phone] Note: Persistent reduction for 3 months [...] or in PCI under Medical Record Forms Procedures Date Code Description Status 11/20/2018 [id number] Mammogram Completed 04/19/2018 [id number] Colonoscopy Completed 11/17/2017 [id number] Mammogram Completed 03/22/2013 [id number] Mammogram Completed 03/14/2013 [id number] Mammogram Completed 03/12/2013 [id number] Mammogram Completed Medical Devices Description No Information Available Encounters Type Date Location Provider Dx Diagnosis Office Visit 03/29/2019 Primary Care Nancy, E78.5 Hyperlipidemia, 2:00p Office Traci, MS, unspecified 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, 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 E55.9 Vitamin D deficiency, unspecified K21.0 Gastro-esophageal reflux disease with esophagitis M25.562 Pain in left knee R20.0 Anesthesia of skin F17.210 Nicotine dependence, cigarettes, uncomplicated Z71.6 Tobacco abuse counseling Office Visit 01/08/2019 1:00p Primary Care Nancy, L03.032 Cellulitis of Office Traci, MS, left toe 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, 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 Office Visit 12/26/2018 1:30p Primary Care Nancy, Z01.419 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 Traci, MS, exam (general) 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, CNM (routine) w/o abn findings R92.2 Inconclusive mammogram E78.5 Hyperlipidemia, unspecified F17.210 Nicotine dependence, cigarettes, uncomplicated G25.81 Restless legs syndrome E55.9 Vitamin D deficiency, unspecified L03.032 Cellulitis of left toe R23.9 Unspecified skin changes B37.9 Candidiasis, unspecified Assessments Date Code Description Provider 06/14/2019 Emliy Buchanan MD, PHD 06/14/2019 E78.5 Hyperlipidemia, unspecified Emily Dalton MD, PHD 06/14/2019 K21.0 Gastro-esophageal reflux disease Emily Dalton MD, PHD with esophagitis 06/14/2019 F17.210 Nicotine dependence, cigarettes, Emily Dalton MD, PHD uncomplicated 06/14/2019 Z71.6 Tobacco abuse counseling Emily Dalton MD, PHD 03/29/2019 E78.5 Hyperlipidemia, unspecified Traci Cruz, MS, 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, [facility] 03/29/2019 E55.9 Vitamin D deficiency, unspecified Traci Cruz, MS, 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, [facility] 03/29/2019 K21.0 Gastro-esophageal reflux disease Traci Cruz, MS, 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 -C, with esophagitis [facility] 03/29/2019 M25.562 Pain in left knee Traci Cruz, , 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, [facility] 03/29/2019 R20.0 Anesthesia of skin Traci Cruz, MS, 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, [facility] 03/29/2019 F17.210 Nicotine dependence, cigarettes, Traci Cruz, MS, 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, uncomplicated [facility] 03/29/2019 Z71.6 Tobacco abuse counseling Traci Cruz, MS, 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, [facility] 01/08/2019 L03.032 Cellulitis of left toe Traci Cruz, MS, 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, [facility] 12/26/2018 Z01.419 Encounter for gynecological Traci Cruz, MS, 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, examination (general) (routine) [facility] 12/26/2018 R92.2 Inconclusive mammogram Traci Cruz, MS, 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, [facility] 12/26/2018 E78.5 Hyperlipidemia, unspecified Traci Cruz, MS, 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, [facility] 12/26/2018 F17.210 Nicotine dependence, cigarettes, Traci Cruz, MS, 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, uncomplicated [facility] 12/26/2018 G25.81 Restless legs syndrome Traci Cruz, MS, 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, [facility] 12/26/2018 E55.9 Vitamin D deficiency, unspecified Traci Curz, , 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, CN 12/26/2018 L03.032 Cellulitis of left toe Traci Cruz MS, 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, CN 12/26/2018 R23.9 Unspecified skin changes Traci Cruz MS, 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, CN 12/26/2018 B37.9 Candidiasis, unspecified Traci Cruz, , 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, [facility] 12/21/2018 Z01.419 Encounter for gynecological Traci Cruz MS, 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, examination (general) (routine) [facility] without abnormal findings 12/21/2018 R92.2 Inconclusive mammogram Traci Cruz MS, 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, [facility] 12/21/2018 E78.5 Hyperlipidemia, unspecified Traci Cruz, , 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, [facility] 12/21/2018 F17.210 Nicotine dependence, cigarettes, Traci Cruz, , 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, uncomplicated CN 12/21/2018 G25.81 Restless legs syndrome Traci Cruz MS, 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, [facility] 12/21/2018 E55.9 Vitamin D deficiency, unspecified Traci Cruz, , 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, CN Plan of Treatment 06/14/2019 - Emily Dalton MD, [id number] CoughNew Medication:Symbicort 80-4.5 mcg/Act - 1 puff daily every dayBenzonatate 100 mg - 1 tab as needed every 8 hours for coughingComments:Stay well hydratedFollow up if symptoms do not yhxwfsiZ21.5 Hyperlipidemia, bbhedlkvfopC98.0 Gastro-esophageal reflux disease with wfddjqwivtrD57.210 Nicotine dependence, cigarettes, aaeyhxiohouquC91.6 Tobacco abuse counseling Functional Status Description No Information Available Mental Status Description No Information Available Referrals Description No Information Available
[2019-07-08 10:17] VITALS: BP 134/81
--- NOTE | 2019-07-08 10:25 | UC ---
Lower Extremity/Ankle HPI - HPI Summary HPI Summary: 53-year-old female who jammed her fourth and fifth toes 2 days ago. She continues to have pain in the fourth and fifth toes. - History of Current Complaint Chief Complaint: UCLowerExtremity Stated Complaint: RT FOOT INJURY Time Seen by Provider: 07/08/19 10:19 Hx Obtained From: Patient Hx Last Menstrual Period: awhile ?: No Onset/Duration: Sudden Onset Severity Initially: Moderate Severity Currently: Moderate Pain Intensity: 7 Aggravating Factor(s): Ambulation Alleviating Factor(s): Rest Able to Bear Weight: Yes - Allergies/Home Medications Allergies/Adverse Reactions: Allergies Allergy/AdvReac Type Severity Reaction Status Date / Time No Known Allergies Allergy Verified 07/08/19 10:18 PMH/Surg Hx/FS Hx/Imm Hx Previously Healthy: Yes Endocrine History: Dyslipidemia - Surgical History Surgical History: Yes Surgery Procedure, Year, and Place: Benign Breast Biopsies, 2016 2012 - Family History Known Family History: Positive: None Negative: Diabetes - Social History Lives: With Family Alcohol Use: Rare Substance Use Type: None Smoking Status (MU): Heavy Every Day Tobacco Smoker Type: Cigarettes Amount Used/How Often: 3/4 - 1 ppd Length of Time of Smoking/Using Tobacco: Since Age 20 Have You Smoked in the Last Year: Yes - Immunization History Most Recent Influenza Vaccination: no Review of Systems All Other Systems Reviewed And Are Negative: Yes Skin: Positive: Bruising, Other - Mild swelling to the right dorsum of patient' s right foot. Motor: Positive: Negative Neurovascular: Positive: Negative Musculoskeletal: Positive: Edema - Mild swelling to right dorsum of right foot. Good peripheral pulses, neuro sensation and capillary refill. Is Patient Immunocompromised?: No Physical Exam Triage Information Reviewed: Yes Appearance: Well-Appearing, No Pain Distress, Well-Nourished Vital Signs: Initial Vital Signs Temp 98.6 F 07/08/19 10:14 Pulse 92 07/08/19 10:14 Resp 15 07/08/19 10:14 BP 134/81 07/08/19 10:14 Pulse Ox 100 07/08/19 10:14 Vital Signs Reviewed: Yes Musculoskeletal Exam: Normal Musculoskeletal: Positive: Other: - Mild swelling to the fifth toe as well as right dorsum of her right foot. Good peripheral pulses neuro sensation capillary refill. The fifth toe is tender on palpation. No deformity is noted Neurological: Positive: Alert, Muscle Tone Normal Psychological Exam: Normal Skin: Positive: Other - See above note. Lower Extremity Course/Dx - Course Course Of Treatment: Right foot x-ray:FINDINGS: The bones are normal alignment. On one view there is a faint radiolucent line seen in the fifth middle phalanx possibly representing a nondisplaced fracture. No other fractures are seen. Joint spaces appear maintained. IMPRESSION: POSSIBLE NONDISPLACED FRACTURE OF THE FIFTH MIDDLE PHALANX. The fifth toe will be radha taped to the fourth toe and the patient's to follow- up with the orthopedist sometime this week. - Differential Dx/Diagnosis Provider Diagnosis: Fracture of toe of right foot Discharge ED - Sign-Out/Discharge Documenting (check all that apply): Patient Departure All imaging exams completed and their final reports reviewed: Yes - Discharge Plan Condition: Good Disposition: HOME Patient Education Materials: Toe Fracture (ED) Referrals: Venessa Barth MD [Primary Care Provider] - Tong Rojas MD [Medical Doctor] - Additional Instructions: Apply ice intermittently and elevate as much as possible. May take Tylenol every 4 hours for pain. Definite follow-up with an orthopedist, call today and make an appointment. - Billing Disposition and Condition Condition: GOOD Disposition: Home - Attestation Statements Provider Attestation: I was available for consult. This patient was seen by the [facility]. The patient was not presented to, seen by, or examined by me. -Susana
== END 2019-07-08 11:00 | disposition home or self-care (01) ==
LOC: UCCORT 09:40
DX: S92.591A Other fracture of right lesser toe(s), initial encounter for closed fracture (principal); F17.210 Nicotine dependence, cigarettes, uncomplicated; W23.0XXA Caught, crushed, jammed, or pinched between moving objects, initial encounter; Y92.9 Unspecified place or not applicable
CPT/HCPCS: 99212; G0463